=== PATIENT | female | born 1990 | race Caucasian/White ===

== ENCOUNTER 2021-04-24 22:13 | Emergency (ER) | payer SELFPAY ==
[2021-04-24 23:52] VITALS: BP 115/81; PULSE 77; RESP 18; TEMP 36.9; O2SAT 99; BMI 23.8
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
== END 2021-04-25 00:32 | disposition home or self-care (01) ==
PROVIDERS: Emergency Provider Emergency Medicine Emergency Medical Services; PCP Nurse Practitioner Family
DX: Z48.00 Encounter for change or removal of nonsurgical wound dressing (principal)
CPT/HCPCS: 99283

== ENCOUNTER 2021-05-02 12:53 | Outpatient (REF) | payer SELFPAY ==
[2021-05-02 13:56] LABS: COVID-19 Test Positive (Negative)
== END 2021-05-02 12:54 | disposition home or self-care (01) ==
LOC: HO.LAB 12:53
PROVIDERS: Visit Provider Internal Medicine
DX: Z20.822 Contact with and (suspected) exposure to COVID-19 (principal)
CPT/HCPCS: 36415; 87635; C9803

== ENCOUNTER 2021-05-16 08:28 | Outpatient (REF) | payer SELFPAY ==
[2021-05-16 08:59] LABS: COVID-19 Test Negative (Negative)
== END 2021-05-16 08:29 | disposition home or self-care (01) ==
LOC: HO.LAB 08:28
PROVIDERS: Visit Provider Internal Medicine
DX: Z20.822 Contact with and (suspected) exposure to COVID-19 (principal)
CPT/HCPCS: 36415; 87635; C9803

== ENCOUNTER 2025-01-26 17:28 | Emergency (ER) | payer MEDICAID, SELFPAY ==
--- OUTSIDE RECORDS SUMMARY | 2024-12-31 07:30 | XMS_ITS ---
Author Organization [facility] Address [address] [place] [id number] Care Team Providers Care Senior Sustainability Advisor Name Role Phone Cuco Sumner Primary Care Provider Leyda Jacskon Unavailable [phone] REASON FOR VISIT OFFICE: Supportive Counseling Social History Sex Assigned At : Social History Observation Description Sex Assigned At Female Encounters Encounter Location Date Provider Diagnosis [facility] [address], [place] [id number] 12/31/2024 Leyda Jackson Plan Of Treatment Next Appt Details Provider Name:Cuco Sumner, 02/09/2025 03:30:00 PM, [address], [place], [phone], Progress Notes * Reba ORTEGAB:1990 (34 yo F)Acc No.[id number]:12/31/2024 Progress Notes Patient: Deanna DE PAZ Provider: Starr Jackson :1990 A ge:34 Y S ex:Female Date:12/31/2024 Address:[address] [place] [id number] Pcp:Cuco Sumner Subjective: * Chief Complaints: * 1 . OFFICE: Supportive Counseling. * Medical History: Objective: * Vitals: Assessment: Plan: * Treatment: * Images: Billing Information: * Visit Code: * Procedure Codes: Care Plan Details* * Electronic signature of Samuel Jackson on 01/26/2025 at 09:19 PM EDT Sign off status: Pending * Provider: Starr Jackson Date: 0 12/31/2024 Generated for Bladimir day/King/Marco on: 0 01/26/2025 09:19 PM EDT
--- OUTSIDE RECORDS SUMMARY | 2025-01-25 09:44 | XMS_ITS ---
Author Organization [facility] Address [address] [place] [phone] Care Team Providers Care Procedures Analyst Name Role Phone Cuco Sumner Primary Care Provider [phone] REASON FOR VISIT MED RF REQUEST Medications Medication SIG (Take, Route, Fr equency, Duration) Notes Start Date End Date Status eszopiclone 3 mg 1 tab(s) orally once a day (at bedtime) for 30 days 01/25/2025 Active Adderall XR 30 mg TAKE 1 CAP BY MOUTH EACH MORNING orally once a day (in the morning) for 30 days band name per insuarnce requirement 01/25/2025 Active Social History Sex Assigned At : Social History Observation Description Sex Assigned At Female Encounters Encounter Location Date Provider Diagnosis [address] [phone] 01/25/2025 Cuco Sumner Post-traumatic stress disorder, chronic F43.12 and Major depressive disorder, recurrent, in partial remission F33.41 Assessments Encounter Date Diagnosis (ICD Code) Assessment Notes Treatment Notes Treatment Clinical Notes Section Notes 01/25/2025 Post-traumatic stress disorder, chronic (ICD-10 - F43.12) 01/25/2025 Major depressive disorder, recurrent, in partial remission (ICD-10 - F33.41) Plan Of Treatment Medication Medication Name Sig Start Date Stop Date Notes eszopiclone 3 mg 1 tab(s) orally once a day (at bedtime) for 30 days 01/25/2025 Adderall XR 30 mg TAKE 1 CAP BY MOUTH EACH MORNING orally once a day (in the morning) for 30 days 01/25/2025 Next Appt Details Provider Name:Cuco Sumner, 02/09/2025 03:30:00 PM, [address] [place] [address], [phone], Progress Notes * JORDAN, RebaB:1990 (34 yo F)Acc No.[id number]:01/25/2025 Patient: Deanna DE PAZ :1990 A ge:34 Y S ex:Female Address:[address] [place] [phone] * Refills Refill Adderall XR capsule, extended release, 30 mg, orally, 30, TAKE 1 CAP BY MOUTH EACH MORNING, once a day (in the morning), 30 days, Refills=0 Refill eszopiclone tablet, 3 mg, orally, 30, 1 tab(s), once a day (at bedtime), 30 days, Refills=1 * true * Date: Generated for Bladimir day/King/Gisselleitting on: 0 01/26/2025 09:19 PM EDT
--- NOTE | ~2025-01-26 | US_ITS ---
CLINICAL HISTORY: abn vag bleeding, ?IUD malpositioning Ultrasound pelvis transabdominal and transvaginal. COMPARISON: None provided. Technique: Real time sonographic imaging, including color-flow imaging, was performed by the resort housekeeper. Multiple business process representative static images were saved for review. FINDINGS: Anteverted uterus appears normal and measures 7.1 x 3.3 x 3.8 cm. No uterine fibroids identified. IUD appropriately positioned within the endometrial canal in the uterine fundus and body. Right ovary appears normal and measures 2.8 x 1.6 x 1.5 cm. No right adnexal mass identified. The left ovary was not seen. Normal appearance of the left adnexa without evidence of mass. No free fluid identified in the pelvic cul-de-sac. IMPRESSION: 1. No cause for patient's symptoms. No evidence of right ovarian torsion. Left ovary was not seen. 2. IUD appears appropriately positioned within the endometrial canal in the uterine body/fundus. This document has been electronically signed by: Reji Flynn MD on 01/26/2025 19:24:46
[2025-01-26 17:46] VITALS: BP 127/87; PULSE 99; RESP 18; TEMP 37.1; O2SAT 99; BMI 26.6
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
[2025-01-26 18:11] LABS: MANUAL DIFF FLAG NO
[2025-01-26 18:12] LABS: Hematocrit 36.4 % (37.0-47.0); Hemoglobin 13.1 g/dl (12.0-16.0); Imm Gran Abs Auto 0.02 X10*3/uL (0.00-0.03); Imm Gran Pct Auto 0.3 % (0.0-0.4); Lymphocytes Absolute Auto 3.1 X10*3/uL (1.2-4.9); Mean Corpuscular HGB Conc 36.0 g/dl (31.0-35.0); Mean Corpuscular Hemoglobin 31.1 pg (27.0-33.0); Mean Corpuscular Volume 86.5 fL (80.0-98.0); NRBC Abs Auto 0.000 X10*3/uL (0.0-0.012); NRBC Pct Auto 0.0 /100WBC (0.0-0.2); Platelet Count 339 X10*3/uL (160-400); Red Blood Count 4.21 X10*6/uL (4.20-5.50); White Blood Count 7.7 X10*3/uL (4.8-10.8)
[2025-01-26 18:13] LABS: Appearance Urine Clear; Glucose Urine UA Negative (Negative); PH 5.5 (5.0-9.0); Specific Gravity - Urine 1.015 (1.005-1.025)
[2025-01-26 18:37] LABS: Alanine Aminotransferase 12 U/L (0-31); Albumin Level 4.9 g/dL (3.5-5.0); Alkaline Phosphatase 71 U/L (39-117); Anion Gap 12 (12-20); Aspartate Amino Transferase 23 U/L (5-31); Blood Urea Nitrogen 10 mg/dL (9-16); Calcium 9.4 mg/dL (8.4-10.2); Carbon Dioxide 25 mmol/L (22-29); Chloride 107 mmol/L (96-108); Creatinine Clr Calc Pharmacy 94.4; Estimated Glomerular Filt Rate > 60; Potassium 3.6 mmol/L (3.3-5.1); Sodium 140 mmol/L (135-145); Total Protein 7.9 g/dL (6.5-8.0)
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
[2025-01-26 21:09] VITALS: BP 125/78; PULSE 102; RESP 18; TEMP 36.6; O2SAT 97
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
--- OUTSIDE RECORDS SUMMARY | 2025-01-26 21:20 | XMS_ITS | Clinical Summary ---
Author Organization [facility] ity Address [address] [place] [address] Care Team Providers Care Rubber Tire Curer Name Role Phone Unavailable Primary Care Provider Unavailabl e Social History Tobacco Use Types Packs/Day Years Used Date Smoking Tobacco: Never Assessed Comments Unknown Sex and Gender Information Value Date Recorded Sex Assigned at Not on file Legal Sex Female 2:35 AM EST Gender Identity Not on file Sexual Orientation Not on file Plan of Treatment Health Maintenance Due Date Last Done Comments DTaP,Tdap,and Td Vaccines (1 - Tdap) 2008 Hepatitis B Vaccines (1 of 3 - 19+ 3-dose series) 2008 Cervical Cancer Screening: P ap Smear 2010 Depression Screening 05/20/2024 COVID-19 Vaccine (1 - 2023-2 5 season) 2025 Influenza Vaccine (#1) 2025 HIB Vaccines Aged Out No longer eligi ble based on patient's age to complete this topic HPV Vaccines Aged Out No longer eligi ble based on patient's age to complete this topic Hepatitis A Vaccines Aged Out No long er eligible based on patient's age to complete this topic IPV Vaccines Aged Out No longer eligi ble based on patient's age to complete this topic MMR Vaccines Aged Out No longer eligi ble based on patient's age to complete this topic Meningococcal ACWY Vaccine Aged Out N o longer eligible based on patient's age to complete this topic Meningococcal B Vaccine Aged Out No l onger eligible based on patient's age to complete this topic Pneumococcal Vaccine: Pediat rics (0 to 5 Years) and At-Risk Patients (6 to 49 Years) Aged Out No longer eligible b ased on patient's age to complete this topic RSV Immunization Patients Un ebony 20 months Aged Out No longer eligible b ased on patient's age to complete this topic Varicella Vaccines Aged Out No longer eligible based on patient's age to complete this topic
--- OUTSIDE RECORDS SUMMARY | 2025-01-26 21:20 | XMS_ITS | Clinical Summary ---
Author Organization [facility] Address [address] [place] [phone] Phone Care Team Providers Care Cosmetic Account Coordinator Name Role Phone Unknown, Unknown Primary Care Provider Unavai lable Allergies No known active allergies Medications ADDERALL XR 10 mg 24 hr capsule 12/27/2021 Ac tive ADDERALL XR 20 mg 24 hr capsule 01/30/2022 Ac tive sertraline (ZOLOFT) 100 MG tablet 01/30/2022 Active fluticasone propionate (FLONASE) 50 mcg/actuation nasal spray 2 sprays by Nasal route daily. 16 g 03/13/2022 Active Active Problems No known active problems Immunizations Immunization Administration Dates Next Due Tdap 04/18/2021 Social History Tobacco Use Types Packs/Day Years Used Date Smoking Tobacco: Every Day Cigarettes Smokeless Tobacco: Never Alcohol Use Standard Drinks/Week Comments Yes 0 (1 standard drink = 0.6 oz pure alcohol) Rarely, less than 1/week average. Education Answer Date Recorded Are you interested in more education? Not on isaac e 09/16/2022 Are you concerned about learning? Not on file 09/16/2022 No 09/16/2022 No 09/16/2022 Digital Access Answer Date Recorded No 10/14/2022 No 10/14/2022 No 10/14/2022 Reliable internet access at home? Not on file 10/14/2022 Device with a working camera? Not on file Comments Unknown Sex and Gender Information Value Date Recorded Sex Assigned at Female 08/08/2021 10:51 PM EDT Legal Sex Female 5:17 PM EST Gender Identity Female 08/08/2021 10:51 PM EDT Sexual Orientation Not on file Last Filed Vital Signs Vital Sign Reading Time Taken Comments Blood Pressure 108/78 03/13/2022 11:34 AM EDT Pulse 98 03/13/2022 11:34 AM EDT Temperature 36 C (96.8 F) 03/13/2022 11:34 AM EDT Respiratory Rate 18 03/13/2022 11:34 AM EDT Oxygen Saturation 97% 03/13/2022 11:34 AM EDT Inhaled Oxygen Concentration - - Weight 63.5 kg (140 lb) 03/12/2022 7:22 PM EDT Height 162.6 cm (5' 4 ) 03/12/2022 7:22 PM EDT Body Mass Index 24.03 03/12/2022 7:22 PM EDT Plan of Treatment Health Maintenance Due Date Last Done Comments DEPRESSION SCREENING 2001 SMOKING Hx and SMOKELESS TOBACCO SCREENING 2002 HEPATITIS C SCREENING 2007 HIV ONE-TIME SCREENING (18-6 5 YEARS) 2007 PNEUMOCOCCAL VACCINES (0-49 years) (1 of 2 - PCV) 2008 PAP SMEAR 2010 COVID-19 VACCINE (2 - 2023-2 5 season) 2024 10/10/2021, 10/10/2021 Adult Td,Tdap Booster 04/18/2031 04/18/2021 HEPATITIS A VACCINES Aged Out No long er eligible based on patient's age to complete this topic HIB VACCINES Aged Out No longer eligi ble based on patient's age to complete this topic MENINGOCOCCAL VACCINES (ACWY) Aged Out No longer eligible based on patient's age to complete this topic MENINGOCOCCAL VACCINES (B) Aged Out N o longer eligible based on patient's age to complete this topic Medical Devices Not on file Insurance [facility] C3 ACO C3 ACO C3 ACO C3 ACO C3 ACO C3 ACO [place] [place] [address] [place] [address] C3 ACO [facility] C3 ACO Care Teams Cosmetic Account Coordinator Relationship Specialty Start Date End Date Unknown, Unknown, PCP - General 03/13/22 Additional Source Comments The information contained in this document represents components of the legal health record. It is not the complete legal health record.[facility]
[2025-01-26 21:41] VITALS: BP 125/78; PULSE 102; RESP 18; TEMP 36.6; O2SAT 97
[2025-01-27 03:52] LABS: CT PCR Urine NOT DETECTED (Not Detect.); NG PCR Urine NOT DETECTED (Not Detect.)
== END 2025-01-26 21:47 | disposition home or self-care (01) ==
PROVIDERS: Physician Assistant Medical; Emergency Provider Emergency Medicine; PCP Internal Medicine
DX: S70.11XA Contusion of right thigh, initial encounter (principal); N93.9 Abnormal uterine and vaginal bleeding, unspecified; T83.83XA Hemorrhage due to genitourinary prosthetic devices, implants and grafts, initial encounter; Y76.2 Prosthetic and other implants, materials and accessory obstetric and gynecological devices associated with adverse incidents; Y92.9 Unspecified place or not applicable; R10.2 Pelvic and perineal pain; Y04.2XXA Assault by strike against or bumped into by another person, initial encounter; Y93.9 Activity, unspecified; Y99.8 Other external cause status
CPT/HCPCS: 36415; 76830; 76856; 80053; 81003; 84702; 85025; 87491; 87591; 99284

== ENCOUNTER → 2025-01-26 17:52 | Outpatient (BNV) | payer MEDICAID, SELFPAY | PROVIDERS: PCP Internal Medicine; Visit Provider Radiology Diagnostic Radiology | DX: N93.9 Abnormal uterine and vaginal bleeding, unspecified (principal); Z97.5 Presence of (intrauterine) contraceptive device | CPT/HCPCS: 76830; 76856 ==

== ENCOUNTER 2025-03-23 10:10 | Outpatient (REF) | payer MEDICAID, SELFPAY ==
--- OUTSIDE RECORDS SUMMARY | 2025-01-30 16:00 | XMS_ITS ---
Author Organization [facility] Address [address] [place] [phone] Care Team Providers Care Data Miner Name Role Phone Cuco Sumner Primary Care Provider [phone] Migration, Provider Unavailable Unavailable REASON FOR VISIT Multum To [facility] Conversion Encounter Medications Medication SIG (Take, Route, Frequency, Duration) Notes Start Date End Date Status Adderall XR 30 MG TAKE 1 CAP BY MOUTH EACH MORNING orally once a day (in the morning) for 30 days 01/25/2025 Active Eszopiclone 3 MG 1 tab(s) orally once a day (at bedtime) for 30 days 01/25/2025 Active Ventolin HFA 108 (90 Base) MCG/ACT 2 puff(s) inhaled every 6 hours for 30 days 06/27/2023 Active Sertraline HCl 100 MG 2 tablet orally on ce a day for 30 days Active Social History Sex Assigned At : Social History Observation Description Sex Assigned At Female Encounters Encounter Location Date Provider Diagnosis [address] [address] 01/30/2025 Provider Migration Post-traumatic stress disorder, chronic F43.12 and Major depressive disorder, recurrent, in partial remission F33.41 Assessments Encounter Date Diagnosis (ICD Code) Assessment Notes Treatment Notes Treatment Clinical Notes Section Notes 01/30/2025 Post-traumatic stress disorder, chronic (ICD-10 - F43.12) 01/30/2025 Major depressive disorder, recurrent, in partial remission (ICD-10 - F33.41) Plan Of Treatment Medication Medication Name Sig Start Date Stop Date Notes Adderall XR 30 MG TAKE 1 CAP BY MOUTH EACH MORNING orally once a day (in the morning) for 30 days 01/25/2025 Eszopiclone 3 MG 1 tab(s) orally once a day (at bedtime) for 30 days 01/25/2025 Next Appt Details Provider Name:Cuco Sumner, 04/13/2025 04:00:00 PM, [address] [place] [address], [phone], Progress Notes * Daisy GOLDSTEINJackieB:1990 (34 yo F)Acc No.[id number]:01/30/2025 Patient: Deanna DE PAZ Provider: :1990 A ge:34 Y S ex:Female Date:01/30/2025 Address:[address] [place], [place] [phone] Pcp:Cuco Sumner Subjective: * Chief Complaints: * 1 . Multum To [facility] Conversion Encounter. * Medical History: * Medications: T aking Ventolin HFA 108 (90 Base) MCG/ACT Aerosol Solution 2 puff(s) inhaled every 6 hours , Taking Sertraline HCl 100 MG Tablet 2 tablet orally once a day Objective: * Vitals: Assessment: * Assessment: 1. P ost-traumatic stress disorder, chronic - F43.12 2 . M ajor depressive disorder, recurrent, in partial remission - F33.41 Plan: * Treatment: 2. M ajor depressive disorder, recurrent, in partial remission Refill Eszopiclone Tablet, 3 MG, 1 tab(s), orally, once a day (at bedtime), 30 days, 30, Refills 1.? * Images: Billing Information: * Visit Code: * Procedure Codes: * Electronic signature of Prov ider Migration on 03/23/2025 at 11:58 AM EST Sign off status: Pending * Provider: Date: 0 01/30/2025 Generated for Bladimir day/King/Marco on: 05/23/2024 11:58 AM EST
--- OUTSIDE RECORDS SUMMARY | 2025-02-09 10:30 | XMS_ITS ---
Author Organization [facility] Address [address] [place] [address] Care Team Providers Care Allergy Nurse Name Role Phone Cuco Sumner Primary Care Provider REASON FOR VISIT Office; Mood/pelvic pain, Symptom screening by [facility] staff pre entrance to clinic, HUDDLE: See July lab orders; did she cintact Tapestry yet, VISIT: mooid; ADHDD; pelvic pain; trauma f.u Medications Medication SIG (Take, Route, Frequency, Duration) [...] Female Encounters Encounter Location Date Provider Diagnosis [facility] [address] [place], [place] [phone] 02/09/2025 Cuco Sumnre Encounter for screening for COVID-19 Z11.52 Assessments Encounter Date Diagnosis (ICD Code) Assessment Notes Treatment Notes Treatment Clinical Notes Section Notes 02/09/2025 Encounter for screening for COVID-19 (ICD-10 - [...] you are having concerning symptoms for COVID-19. 02/09/2025 Other Plan Of Treatment Treatment Notes Assessment Notes Encounter for screening for COVID-19 Cov id screening is negative. Discussed in detail with [...] you are having concerning symptoms for COVID-19. Next Appt Details Provider Name:Cuco Taisha, 04/13/2025 04:00:00 PM, [address] [place] [address], [phone], Progress Notes * Daisy ORTEGAJackieB:1990 (34 yo F)Acc No.[id number]:02/09/2025 Progress Notes Patient: Deanna DE PAZ Provider: Paige Sumner MD :1990 A ge:34 Y S ex:Female Date:02/09/2025 Address:[address] [place], [place] [id number] Subjective: * Chief Complaints: * 1 . Office; Mood/pelvic pain. 2. Symptom screening by [facility] staff pre entrance to clinic. 3. HUDDLE: See July lab orders; did she cintact Tapestry yet. 4. VISIT: mooid; ADHDD; pelvic pain; trauma f.u. * HPI: G eneral: Symptom Screen: - Fever in the last 1 week? Patient denies - New or worsening cough in the last 1 week? Patient denies. - Contact will known COVID exposure in last 5 days? Patient denies -new rash within last 3 weeks? Patient denies - Have you received the COVID-19 vaccine? - Have you received COVID-19 booster? - Have you been tested positive for COVID -19 in the last 7 days? If so where and why? RN/MA: ABL: HUDDLE: See July lab orders; did she cintact Tapestry yet, VISIT: mooid; ADHDD; pelvic pain; trauma f.u. No show today. I did not have opportunity to call her. * ROS: N o acute C/P no acute SOB, No problem with urine, No heartburn or abdominal pain. Endorses being able to climb one fight of stairs without stopping due to SOB, Mood: stable, appetite: good, sleeping well. Denies new skin rashes. * Medical History: * Medications: T aking Ventolin HFA 108 (90 Base) MCG/ACT Aerosol Solution 2 puff(s) inhaled every 6 hours , Taking Sertraline HCl 100 MG Tablet 2 tablet orally once a day , Taking Adderall XR 30 MG Capsule Extended Release 24 Hour TAKE 1 CAP BY MOUTH EACH MORNING orally once a day (in the morning) , Taking Eszopiclone 3 MG Tablet 1 tab(s) orally once a day (at bedtime) Objective: * Vitals: Assessment: * Assessment: 1. E ncounter for screening for COVID-19 - Z11.52 (Primary) Plan: * Treatment: * Images: Billing Information: * Visit Code: * Procedure Codes: Care Plan Details* * Electronic signature of Greyson Sumner MD on 03/23/2025 at 11:58 AM EST Sign off status: Pending * Provider: Paige Sumner MD Date: 0 02/09/2025 Generated for Bladimir day/King/Marco on: 1 05/23/2024 11:58 AM EST
--- OUTSIDE RECORDS SUMMARY | 2025-03-18 11:30 | XMS_ITS ---
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 Problem Tear film insufficiency (39942397) Dry eye syndrome of unspecified lacrimal gland (H04.129) Active confirmed Encounters Encounter Location Date Provider Diagnosis [address] [phone] 03/18/2025 Cuco Sumner Unspecified iridocyclitis H20.9 and Dry eye syndrome of unspecified lacrimal gland H04.129 Assessments Encounter Date Diagnosis (ICD Code) Assessment Notes Treatment Notes Treatment Clinical Notes Section Notes 03/18/2025 Unspecified iridocyclitis (ICD-10 - H20.9) 03/18/2025 Dry eye syndrome of unspecified lacrimal gland (ICD-10 - H04.129) Plan Of Treatment Next Appt Details Provider Name:Cuco Sumner, 04/13/2025 04:00:00 PM, [address] [place] [address], [phone], Progress Notes * Reba GOLDSTEINB:1990 (34 yo F)Acc No.[id number]:03/18/2025 Patient: Seble ARREOLADaisya :1990 A ge:34 Y S ex:Female Address:[address] [place] [phone] Subjective: * Chief Complaints: * E ye care note 01/06/25 * Medical History: * Surgical History: * Hospitalization/Major Diagno stic Procedure: * Medications: Objective: * Vitals: * Physical Examination: Assessment: * Assessment: 1. U nspecified iridocyclitis - H20.9 2 . D ry eye syndrome of unspecified lacrimal gland - H04.129 Plan: * Treatment: * Procedure Codes: * true * Date: Generated for Bladimir day/King/eTanitasmitting on: 05/23/2024 11:58 AM EST
[2025-03-23 10:24] LABS: MANUAL DIFF FLAG NO
[2025-03-23 10:48] LABS: Hematocrit 42.2 % (37.0-47.0); Hemoglobin 14.3 g/dl (12.0-16.0); Imm Gran Abs Auto 0.03 X10*3/uL (0.00-0.03); Imm Gran Pct Auto 0.4 % (0.0-0.4); Lymphocytes Absolute Auto 3.2 X10*3/uL (1.2-4.9); Mean Corpuscular HGB Conc 33.9 g/dl (31.0-35.0); Mean Corpuscular Hemoglobin 30.8 pg (27.0-33.0); Mean Corpuscular Volume 90.9 fL (80.0-98.0); NRBC Abs Auto 0.000 X10*3/uL (0.0-0.012); NRBC Pct Auto 0.0 /100WBC (0.0-0.2); Platelet Count 309 X10*3/uL (160-400); Red Blood Count 4.64 X10*6/uL (4.20-5.50); White Blood Count 7.7 X10*3/uL (4.8-10.8)
[2025-03-23 11:16] LABS: Alanine Aminotransferase 12 U/L (0-31); Albumin Level 4.8 g/dL (3.5-5.0); Alkaline Phosphatase 76 U/L (39-117); Anion Gap 9 (12-20); Aspartate Amino Transferase 19 U/L (5-31); Blood Urea Nitrogen 10 mg/dL (9-16); Calcium 9.6 mg/dL (8.4-10.2); Carbon Dioxide 29 mmol/L (22-29); Chloride 107 mmol/L (96-108); Cholesterol 212 mg/dL (<200); Estimated Glomerular Filt Rate > 60; HDL Cholesterol 38 mg/dL (>40); Potassium 3.7 mmol/L (3.3-5.1); Sodium 141 mmol/L (135-145); Total Protein 7.8 g/dL (6.5-8.0); Triglycerides 87 mg/dL (<150)
[2025-03-23 11:42] LABS: Reflex LDLD? No
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
--- OUTSIDE RECORDS SUMMARY | 2025-03-23 11:58 | XMS_ITS | Clinical Summary ---
Author Organization [facility] it Address [address] [place] [address] Care Team Providers Care Director Product Management Name Role Phone Unavailable Primary Care Provider [...] Cervical Cancer Screening: P ap Smear 2010 HPV Vaccines (1 - 3-dose SCD M series) 2016 Depression Screening 05/20/2024 COVID-19 Vaccine ( - 2023-2 5 season) 2025 Influenza Vaccine (#1) 2025 RSV Immunization Adult Patie nts (1 - 1-dose 75+ series) 2064 HIB Vaccines Aged Out No longer eligi [...]
--- OUTSIDE RECORDS SUMMARY | 2025-03-23 11:59 | XMS_ITS | Clinical Summary ---
Author Organization [facility] Address [address] [place] [address] Care Team Providers Care Hot Shot Name Role Phone Unavailable Primary Care Provider Unavailabl e Source Comments PLEASE NOTE, if this patient is a minor, it may be UNLAWFUL to discuss sensitive information that is contained in these records (such as FAMILY PLANNING, MENTAL HEALTH or SUBSTANCE ABUSE) with the minor patient's parent or other person without the patient's specific authorization.[facility] Medications No known medications Active Problems No known active problems Social History Tobacco Use Types Packs/Day Years Used Date Smoking Tobacco: Never Assessed Social Connections Answer Date Recorded Connectedness 0 03/23/2024 Financial Resource Strain Answer Date R ecorded Financial Resource Strain 0 2023 Stress Answer Date Recorded Stress 0 03/23/2024 Physical Activity Answer Date Recorded Physical Activity 0 03/23/2024 Food Insecurity Answer Date Recorded Food 0 03/23/2024 Transportation Needs Answer Date Record ed Transportation 0 03/23/2024 Housing Stability Answer Date Recorded Housing 0 03/23/2024 Safety and Environment Answer Date Levy rded Safety 0 03/23/2024 Utilities Answer Date Recorded Utilities 0 03/23/2024 Employment Answer Date Recorded Stress 0 03/23/2024 Comments Unknown Sex and Gender Information Value Date Recorded Sex Assigned at Not on file Legal Sex Female 1:13 PM PST Gender Identity Not on file Sexual Orientation Not on file Last Filed Vital Signs Vital Sign Reading Time Taken Comments Blood Pressure 135/81 07/27/2024 1:06 PM EDT Pulse 80 07/27/2024 1:06 PM EDT Temperature - - Respiratory Rate - - Oxygen Saturation - - Inhaled Oxygen Concentration - - Weight - - Height - - Body Mass Index - - Plan of Treatment Health Maintenance Due Date Last Done Comments Anxiety Screening 1989 Diabetes Screening 1989 HPV Screening (self-collect) 1989 HPV Screening 1989 Hepatitis C Screening 1989 Pap + HPV 1989 Tobacco Screening 1989 HIV Screening 2004 Relationship Safety Screening/Counseling 2004 Imm-DTaP/Tdap/Td (1 - Tdap) 2008 Imm-Hepatitis B (1 of 3 - 19+ 3-dose series) Cervical Cancer Screening 2010 Pap Smear 2010 Imm-HPV (1 - 3-dose SCDM series) 2016 Alcohol and Drug Screen 05/20/2024 Depression Annual Screen 05/20/2024 [id number] ( season) 2025 Imm-Influenza (#1) 2025 Dental BW 06/11/2025 06/09/2024 Dental Examination 06/11/2025 06/09/2024 Dental Perio Charting 06/11/2025 06/09/2024 Dental Prophy 06/11/2025 06/09/2024 Hypertension Screening (#1) 07/27/2025 Dental FMX/Pano 06/11/2029 06/09/2024 Cervical Ablation/Cold-Knife Conization Discontinued Cervical Cryotherapy Discontinued Colposcopy Discontinued Excision/Leep Discontinued HPV Genotyping Discontinued Vaginal Pap Discontinued Vulvoscopy Discontinued Procedures Procedure Name Priority Date/Time Associated Diagnosis Comments INTRAORAL - COMP SERIES OF RADIOGRAPHIC IMAGES Routine 06/09/2024 1:40 PM EST Stage 2 grade B generalized periodontitis per AAP/EFP 2017 classification SCALING PRESENCE GEN MOD/SEV GINGIVAL INFLAMM Routine 06/09/2024 1:40 PM EST Stage 2 grade B generalized periodontitis per AAP/EFP 2017 classification COMP ORAL EVALUATION - NEW/ESTABLISHED PATIENT Routine 06/09/2024 1:40 PM EST Stage 2 grade B generalized 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
--- OUTSIDE RECORDS SUMMARY | 2025-03-23 12:00 | XMS_ITS | Clinical Summary ---
Author Organization [facility] Address [address] [place] [address] Phone Care Team Providers Care Veneer Sheet Repairer Name Role Phone Unknown, Unknown Primary Care [...] 2 - PCV) 2008 PAP SMEAR 2010 INFLUENZA VACCINE (#1) 2024 01/14/2017 COVID-19 VACCINE (2 - 2024-2 6 season) 2025 10/10/2021, 10/10/2021 Adult Td,Tdap Booster 04/18/2031 04/18/2021 [...] topic Medical Devices Not on file [place] [address] [place] [address] C3 ACO C3 ACO C3 ACO C3 ACO C3 ACO C3 ACO [address] [place] [address] [place] [address] [place] [address] [place] [address] C3 ACO Care Teams Veneer Sheet Repairer Relationship Specialty Start Date End Date Unknown, Unknown, PCP - General 03/13/22 Additional Source Comments The information contained in this document represents components of the legal health record. It is not the complete legal health record.[facility]
[2025-03-28 15:18] LABS: Testosterone, Free 4.2 pg/mL (0.1-6.4)
== END 2025-03-23 10:11 | disposition home or self-care (01) ==
LOC: HO.LAB 10:10
PROVIDERS: Visit Provider Internal Medicine
DX: Z13.220 Encounter for screening for lipoid disorders (principal); F64.0 Transsexualism
CPT/HCPCS: 36415; 80053; 80061; 84402; 84403; 85025